=== PATIENT | male | born 1985 | race Caucasian/White ===

== ENCOUNTER 2020-08-01 23:36 | Emergency (ER) | payer SELFPAY ==
[~2020-08-01] VITALS: Ht 177.8 cm; Wt 105.0 kg
--- NOTE | 2020-08-01 23:41 | NUR ---
PT NOT IN LOBBY
[2020-08-01 23:58] VITALS: BP 137/80
== END 2020-08-02 01:46 | disposition home or self-care (01) ==
LOC: ED 08-02 01:30
DX: S02.2XXA Fracture of nasal bones, initial encounter for closed fracture (principal); Y04.8XXA Assault by other bodily force, initial encounter; Y93.89 Activity, other specified; Y92.89 Other specified places as the place of occurrence of the external cause; Y99.8 Other external cause status
CPT/HCPCS: 70160; 99283